=== PATIENT | female | born 1980 | race Caucasian/White ===

== ENCOUNTER 2022-08-14 07:51 | Outpatient (CLI) | payer OTHER, SELFPAY ==
--- NOTE | 2022-08-14 08:45 | CRLHL7_ITS ---
For Patients: As a result of the Century Cures Act, medical imaging exams and procedure reports are released immediately into your electronic medical record. You may view this report before your referring provider. If you have questions, please contact your health care provider. BILATERAL SCREENING MAMMOGRAM WITH COMPUTER-AIDED DETECTION AND TOMOSYNTHESIS TECHNIQUE: CC and MLO views were obtained. These mammographic images have been obtained using full-field digital technique. These mammographic images were interpreted with the benefit of computer-aided detection. Breast Tomosynthesis was used in this interpretation. COMPARISON FILM: 10/10/20, 11/19/18,09/19/17. FINDINGS: There are scattered areas of fibroglandular density IMPRESSION: There is no radiographic evidence for malignancy. ASSESSMENT: BI-RADS Category 1: Negative RECOMMENDATION: Routine screening mammogram in 1 year. A lay language report of this examination will be provided to the patient. Harpreet Soriano M.D. Diagnostic Radiologist [email or web address] PUJA/Dictated by: Harpreet Soriano MD @ 08/14/2022 11:06:00 AM (Electronically Signed)
== END 2022-08-14 07:52 | disposition home or self-care (01) ==
LOC: MAMMO 07:52
PROVIDERS: PCP Family Medicine; Visit Provider Family Medicine
DX: Z12.31 Encounter for screening mammogram for malignant neoplasm of breast (principal)
CPT/HCPCS: 77063; 77067

== ENCOUNTER 2023-07-15 09:26 | Outpatient (CLI) | payer OTHER, SELFPAY | END 2023-07-15 09:27 | disposition home or self-care (01) | PROVIDERS: PCP Family Medicine; Visit Provider Registered Nurse | DX: Z01.419 Encounter for gynecological examination (general) (routine) without abnormal findings (principal); R53.83 Other fatigue; R63.5 Abnormal weight gain; F41.1 Generalized anxiety disorder; Z13.6 Encounter for screening for cardiovascular disorders; Z13.1 Encounter for screening for diabetes mellitus | CPT/HCPCS: 80061; 82306; 84443 ==

== ENCOUNTER 2023-08-20 07:34 | Outpatient (CLI) | payer OTHER, SELFPAY ==
--- NOTE | 2023-08-20 08:45 | CRLHL7_ITS ---
For Patients: As a result of the Century Cures Act, medical imaging exams and procedure reports are released immediately into your electronic medical record. You may view this report before your referring provider. If you have questions, please contact your health care provider. BILATERAL SCREENING MAMMOGRAM WITH COMPUTER-AIDED DETECTION AND TOMOSYNTHESIS TECHNIQUE: CC and MLO views were obtained. These mammographic images have been obtained using full-field digital technique. These mammographic images were interpreted with the benefit of computer-aided detection. Breast tomosynthesis was used in this interpretation. COMPARISON FILM: 08/14/22, 10/10/20, 11/19/18. FINDINGS: There are scattered areas of fibroglandular density. IMPRESSION: There is no radiographic evidence for malignancy. ASSESSMENT: BI-RADS Category 1: Negative RECOMMENDATION: Routine screening mammogram in 1 year. A lay language report of this examination will be provided to the patient. KELLY VAUHGN M.D. Diagnostic/Nuclear Medicine Radiologist [email or web address] Transcribed: 1:[address]/Dictated by: Kelly Vaughn MD @ 08/21/2023 10:21:00 AM (Electronically Signed)
== END 2023-08-20 07:35 | disposition home or self-care (01) ==
LOC: MAMMO 07:35
PROVIDERS: PCP Family Medicine; Visit Provider Registered Nurse
DX: Z12.31 Encounter for screening mammogram for malignant neoplasm of breast (principal)
CPT/HCPCS: 77063; 77067

== ENCOUNTER 2024-12-21 08:34 | Outpatient (CLI) | payer OTHER, SELFPAY | END 2024-12-21 08:35 | disposition home or self-care (01) | LOC: MAMMO 08:35 | PROVIDERS: PCP Family Medicine; Visit Provider Registered Nurse | DX: Z12.31 Encounter for screening mammogram for malignant neoplasm of breast (principal) | CPT/HCPCS: 77063; 77067 ==